=== PATIENT | female | born 1985 | race Hispanic/Latino ===

== ENCOUNTER 2019-08-28 17:38 | Emergency (ER) | payer SELFPAY ==
[2019-08-28] MEDS ORDERED: ONDANSETRON 4 MG/2 ML VIAL ONE (18:50)
[2019-08-28] MEDS ORDERED: MORPHINE 4 MG/ML SYR ONE (18:50)
[2019-08-28 18:52] LABS: Absolute Lymphocytes (CBC) 1.5 K/uL (0.7-4.9); Basophils % 0.2 % (0-1.3); Hematocrit 37.9 % (36.0-45.0); MPV 9.3 fL (7.6-11.3); RBC Red Blood Cell Count 4.34 M/uL (3.86-4.86)
[2019-08-28 19:06] LABS: ALT/SGPT 16 U/L (12-78); AST/SGOT 12 U/L (15-37); Albumin 4.1 g/dL (3.4-5.0); BUN Blood Urea Nitrogen 9 mg/dL (7-18); Bicarbonate 26 mmol/L (21-32); Bilirubin Direct 0.2 mg/dL (0-0.2); Glucose Level 95 mg/dL (74-106); Lipase 51 U/L (73-393); Potassium 3.5 mmol/L (3.5-5.1); Sodium Level 137 mmol/L (136-145)
[2019-08-28 19:09] LABS: Alkaline Phosphatase 72 U/L (45-117); Bilirubin Total 0.7 mg/dL (0.2-1.0); Protein, Total 8.2 g/dL (6.4-8.2)
[2019-08-28 19:27] LABS: Urine Blood 2+ (NEG); Urine Glucose NEGATIVE (NEG); Urine Protein 1+ (NEG); Urine Specific Gravity 1.025 (1.005-1.030); Urine pH 6.5 (5.0-7.0)
--- NOTE | 2019-08-28 23:15 | ER ---
Nurse's Notes [facility] Name: Melia Rivers Age: 33 yrs Sex: Female : 1985 Arrival Date: 08/28/2019 Time: 17:41 Bed 7 Private MD: Diagnosis: Abdominal and pelvic pain;Dysmenorrhea, unspecified;Unspecified ovarian cysts Presentation: 08/27 18:10 Chief complaint: Patient states: Started on Tuesday, diffuse abdominal pain radiating to ca1 the back. Reports N/V/Constipation. Reports abdomen feels distended and swollen. Denies urinary symptoms. Denies fever. Coronavirus screen: Proceed with normal triage. Patient denies a cough. Patient denies shortness of breath or difficulty breathing. Patient denies measured and/or subjective temperature greater than 100.4F prior to today's visit. Patient denies travel on a cruise ship or to a country the [facility] currently lists as an affected area. Patient denies contact with known and/or suspected case of COVID-19. Ebola Screen: Patient negative for fever greater than or equal to 101.5 degrees Fahrenheit, and additional compatible Ebola Virus Disease symptoms Patient denies exposure to infectious person. Patient denies travel to an Ebola-affected area in the 21 days before illness onset. No symptoms or risks identified at this time. Initial Sepsis Screen: Does the patient meet any 2 criteria? No. Patient's initial sepsis screen is negative. Does the patient have a suspected source of infection? No. Patient's initial sepsis screen is negative. Risk Assessment: Do you want to hurt yourself or someone else? Patient reports no desire to harm self or others. Onset of symptoms was August 28, 2019. 18:10 Method Of Arrival: Ambulatory ca1 18:10 Acuity: ELIECER 3 ca1 Triage Assessment: 18:10 General: Appears in no apparent distress. uncomfortable, Behavior is cooperative, bp appropriate for age, anxious. Pain: Complains of pain in abdomen. EENT: No deficits noted. Neuro: No deficits noted. Cardiovascular: No deficits noted. Respiratory: No deficits noted. GI: Abdomen is non-distended. : No signs and/or symptoms were reported regarding the genitourinary system. Derm: No deficits noted. Musculoskeletal: No deficits noted. 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 - Social history:: Smoking status: Patient reports the use of cigarette tobacco products, denies chronic smoking, but will smoke occasionally. Screenin:46 Abuse screen: Denies threats or abuse. Denies injuries from another. Nutritional bp screening: No deficits noted. Tuberculosis screening: No symptoms or risk factors identified. Fall Risk None identified. Assessment: 18:10 General: SEE TRIAGE NOTE. bp 19:11 General: Appears in no apparent distress. comfortable, Behavior is calm, cooperative, ao appropriate for age. Pain: Complains of pain in abdomen Pain currently is 6 out of 10 on a pain scale. Neuro: Level of Consciousness is awake, alert, obeys commands, Oriented to person, place, time, situation, Appropriate for age Moves all extremities. Full function Speech is normal. Cardiovascular: Capillary refill < 3 seconds Patient's skin is warm and dry. Respiratory: Airway is patent Respiratory effort is even, unlabored, Respiratory pattern is regular, symmetrical. GI: Bowel sounds present X 4 quads. Abd is soft and non tender X 4 quads. GI: Reports nausea, Pain is 6 out of 10 on a pain scale. : EENT: No signs and/or symptoms were reported regarding the EENT system. Derm: No signs and/or symptoms reported regarding the dermatologic system. Musculoskeletal: No signs and/or symptoms reported regarding the musculoskeletal system. 19:12 Reassessment: Received report from YOLY Marin. ao 21:14 Reassessment: Patient appears in no apparent distress at this time. Patient and/or ao family updated on plan of care and expected duration. Pain level reassessed. Vital Signs: 18:10 BP 95 / 62; Pulse 91; Resp 17 S; Temp 97.2(TE); Pulse Ox 100% on R/A; Weight 58.97 kg ca1 (R); Height 5 ft. (152.40 cm) (R); Pain 8/10; 20:00 BP 117 / 69; Pulse 74; Resp 14; Pulse Ox 100% on R/A; Pain 6/10; ao 21:14 BP 111 / 51; Pulse 77; Resp 16; Pulse Ox 100% ; ao 22:51 BP 104 / 58; Pulse 87; Resp 18; Pulse Ox 99% on R/A; ea 18:10 Body Mass Index 25.39 (58.97 kg, 152.40 cm) ca1 ED Course: 17:41 Patient arrived in ED. mr 18:12 Triage completed. ca1 18:13 Arm band placed on right wrist. ca1 18:19 Tomas Obando, YOLY is Primary Nurse. bp 18:38 Rashawn Lopez PA is PHCP. jr8 18:38 Earl Zheng MD is Attending Physician. jr8 18:40 Initial lab(s) drawn, by me, sent to lab. Inserted saline lock: 22 gauge in left kj1 antecubital area, using aseptic technique. Blood collected. 18:46 Patient has correct armband on for positive identification. Bed in low position. Call bp light in reach. Side rails up X2. 20:15 CT Abd/Pelvis - IV Contrast Only In Process Unspecified. EDMS 21:59 US Transvaginal Study (Probe) In Process Unspecified. EDMS 08/28 00:07 No provider procedures requiring assistance completed. Patient did not have IV access ea during this emergency room visit. intact, bleeding controlled, No redness/swelling at site. Pressure dressing applied. Administered Medications: 08/27 18:44 Drug: morphine 4 mg Route: IVP; Site: left forearm; bp 08/28 00:05 Follow up: Response: No adverse reaction; RASS: Alert and Calm (0) ea 08/27 18:44 Drug: Zofran (Ondansetron) 4 mg Route: IVP; Site: left forearm; bp 08/28 00:05 Follow up: Response: No adverse reaction ea 00:06 Drug: Acetaminophen 1000 mg Route: PO; ea 00:06 Follow up: Response: No adverse reaction; RASS: Alert and Calm (0) ea 00:07 Follow up: Response: RASS: Alert and Calm (0) ea Outcome: 08/27 23:14 Discharge ordered by . [email or web address] 08/28 00:07 Discharged to home ambulatory. ea Condition: stable Discharge instructions given to patient, Instructed on discharge instructions, follow up and referral plans. 00:08 Patient left the ED. ea Signatures: Dispatcher [employer] EDND Ana Faria mr John, RUBIN Morocho jr8 Marlo Al, RN RN Chikis Hunt RN RN Tomas Zhang, Jennifer Wynne RN RN RN Marina Mcneil kj1
--- NOTE | 2019-08-28 23:15 | EDPHYS ---
Physician Documentation [facility] Name: Melia Rivers Age: 33 yrs Sex: Female : 1985 Arrival Date: 08/28/2019 Time: 17:41 Bed 7 Private MD: ED Physician Earl Zheng HPI: 08/27 19:33 This 33 yrs old Female presents to ER via Ambulatory with complaints of jr8 Abdominal Pain. 19:33 The patient presents with abdominal pain that is diffuse. Onset: The symptoms/episode jr8 began/occurred acutely, 2 day(s) ago. The symptoms do not radiate. Associated signs and symptoms: none. The symptoms are described as stabbing. Modifying factors: The symptoms are alleviated by nothing, the symptoms are aggravated by movement. Severity of pain: At its worst the pain was moderate in the emergency department the pain is unchanged. The patient has not experienced similar symptoms in the past. The patient has not recently seen a physician. 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 - Social history:: Smoking status: Patient reports the use of cigarette tobacco products, denies chronic smoking, but will smoke occasionally. ROS: 19:34 Eyes: Negative for injury, pain, redness, and discharge, ENT: Negative for injury, jr8 pain, and discharge, Neck: Negative for injury, pain, and swelling, Cardiovascular: Negative for chest pain, palpitations, and edema, Respiratory: Negative for shortness of breath, cough, wheezing, and pleuritic chest pain, Back: Negative for injury and pain, MS/Extremity: Negative for injury and deformity, Skin: Negative for injury, rash, and discoloration, Neuro: Negative for headache, weakness, numbness, tingling, and seizure. 19:34 Abdomen/GI: Positive for abdominal pain, Negative for nausea, vomiting, and diarrhea, abdominal cramps, abdominal distension. Exam: 19:34 Eyes: Pupils equal round and reactive to light, extra-ocular motions intact. Lids and jr8 lashes normal. Conjunctiva and sclera are non-icteric and not injected. Cornea within normal limits. Periorbital areas with no swelling, redness, or edema. ENT: Nares patent. No nasal discharge, no septal abnormalities noted. Tympanic membranes are normal and external auditory canals are clear. Oropharynx with no redness, swelling, or masses, exudates, or evidence of obstruction, uvula midline. Mucous membranes moist. Neck: Trachea midline, no thyromegaly or masses palpated, and no cervical lymphadenopathy. Supple, full range of motion without nuchal rigidity, or vertebral point tenderness. No Meningismus. Cardiovascular: Regular rate and rhythm with a normal S1 and S2. No gallops, murmurs, or rubs. Normal PMI, no JVD. No pulse deficits. Respiratory: Lungs have equal breath sounds bilaterally, clear to auscultation and percussion. No rales, rhonchi or wheezes noted. No increased work of breathing, no retractions or nasal flaring. Back: No spinal tenderness. No costovertebral tenderness. Full range of motion. Skin: Warm, dry with normal turgor. Normal color with no rashes, no lesions, and no evidence of cellulitis. MS/ Extremity: Pulses equal, no cyanosis. Neurovascular intact. Full, normal range of motion. Neuro: Awake and alert, GCS 15, oriented to person, place, time, and situation. Cranial nerves II-XII grossly intact. Motor strength 5/5 in all extremities. Sensory grossly intact. Cerebellar exam normal. Normal gait. 19:34 Abdomen/GI: Inspection: abdomen appears normal, Bowel sounds: active, all quadrants, Palpation: soft, in all quadrants, mild abdominal tenderness, in the suprapubic area and right lower quadrant, moderate abdominal tenderness, in the left lower quadrant, mass, is not appreciated, rebound tenderness, is not appreciated, voluntary guarding, is not appreciated, involuntary guarding, is not appreciated, no appreciated organomegaly, Indicators: McBurney's point is not tender, Hayward's sign is negative, Rovsing's sign is negative, Liver: tenderness, is not appreciated. Vital Signs: 18:10 BP 95 / 62; Pulse 91; Resp 17 S; Temp 97.2(TE); Pulse Ox 100% on R/A; Weight 58.97 kg ca1 (R); Height 5 ft. (152.40 cm) (R); Pain 8/10; 20:00 BP 117 / 69; Pulse 74; Resp 14; Pulse Ox 100% on R/A; Pain 6/10; ao 21:14 BP 111 / 51; Pulse 77; Resp 16; Pulse Ox 100% ; ao 22:51 BP 104 / 58; Pulse 87; Resp 18; Pulse Ox 99% on R/A; ea 18:10 Body Mass Index 25.39 (58.97 kg, 152.40 cm) ca1 MDM: 18:38 Patient medically screened. jr8 23:11 Data reviewed: vital signs, nurses notes, lab test result(s), radiologic studies, CT jr8 scan, ultrasound, and as a result, I will discharge patient. Data interpreted: Pulse oximetry: on room air is 99 %. Interpretation: normal. Counseling: I had a detailed discussion with the patient and/or guardian regarding: the historical points, exam findings, and any diagnostic results supporting the discharge/admit diagnosis, lab results, radiology results, the need for outpatient follow up, an OB/Gyne specialist, to return to the emergency department if symptoms worsen or persist or if there are any questions or concerns that arise at home. ED course: After further discussing results with patient. Patient did say she has had some painful intercourse and abnormal bleeding. No discharge at this time. Explained to her that it may be some dysmenorrhea. Otherwise nothing else surgically emergent at this time and can f/u with OB. Patient good with this . 08/27 18:28 Order name: Urine Dipstick--Ancillary (enter results); Complete Time: 19:28 em1 08/27 18:28 Order name: Urine --Ancillary (enter results); Complete Time: 19:28 em1 08/27 18:38 Order name: Basic Metabolic Panel; Complete Time: 19:24 8 08/27 18:38 Order name: CBC with Diff; Complete Time: 19:24 08/27 18:38 Order name: Hepatic Function; Complete Time: 19:24 08/27 18:38 Order name: Lipase; Complete Time: 19:24 08/27 18:38 Order name: IV Saline Lock; Complete Time: 18:39 08/27 18:38 Order name: Labs collected and sent; Complete Time: 18:39 8 08/27 19:27 Order name: CT Abd/Pelvis - IV Contrast Only 8 08/27 20:48 Order name: Transvaginal Study (Probe) jr8 Administered Medications: 18:44 Drug: morphine 4 mg Route: IVP; Site: left forearm; bp 08/28 00:05 Follow up: Response: No adverse reaction; RASS: Alert and Calm (0) ea 08/27 18:44 Drug: Zofran (Ondansetron) 4 mg Route: IVP; Site: left forearm; bp 08/28 00:05 Follow up: Response: No adverse reaction ea 00:06 Drug: Acetaminophen 1000 mg Route: PO; ea 00:06 Follow up: Response: No adverse reaction; RASS: Alert and Calm (0) ea 00:07 Follow up: Response: RASS: Alert and Calm (0) ea Disposition: 08/28/19 23:14 Discharged to Home. Impression: Abdominal and pelvic pain, Dysmenorrhea, unspecified, Unspecified ovarian cysts. - Condition is Stable. - Discharge Instructions: Abdominal Pain, Adult, Ovarian Cyst, Dysmenorrhea, [id number]. - Medication Reconciliation Form, Thank You Letter, Antibiotic Education, Prescription Opioid Use, Work release form form. - Follow up: Private Physician; When: 2 - 3 days; Reason: If symptoms return, Recheck today's complaints, Continuance of care, Re-evaluation by your physician. - Problem is new. - Symptoms have improved. Addendum: 08/30/2019 21:25 Co-signature as Attending Physician, Earl Zheng MD Did not see or evaluate patient. p s1 I was available in the ED for consultation. Signature for administrative purposes. . Signatures: Dispatcher [employer] EDMS Rashawn Lopez PA PA jr8 Chikis Kent RN RN ea Peltier, Brian, RN RN bp Singer, Phillip, MD MD ps1 Jennifer Magdaleno RN RN ca1 Corrections: (The following items were deleted from the chart) 08/27 19:34 19:33 Onset: The symptoms/episode began/occurred acutely, today, jr8 jr8 08/28 00:08 08/27 23:14 08/28/2019 23:14 Discharged to Home. Impression: Abdominal and pelvic pain; ea Dysmenorrhea, unspecified; Unspecified ovarian cysts. Condition is Stable. Forms are Medication Reconciliation Form, Thank You Letter, Antibiotic Education, Prescription Opioid Use. Follow up: Private Physician; When: 2 - 3 days; Reason: If symptoms return, Recheck today's complaints, Continuance of care, Re-evaluation by your physician. Problem is new. Symptoms have improved. jr8
[2019-08-29] MEDS ORDERED: ACETAMINOPHEN 500 MG TAB ONE (00:04)
[2019-08-29 00:16] VITALS: TEMP 97.2
[2019-08-29 00:20] VITALS: BP 104/58; O2SAT 99
--- NOTE | 2019-08-29 08:47 | RAD REPORT ---
EXAM DESCRIPTION: US - Transvaginal Study Probe - 08/28/2019 9:59 pm CLINICAL HISTORY: Abnormal CT...TOA vs rupture cyst COMPARISON: None. TECHNIQUE: US PELVIS TRANSVAGINAL 08/28/2019 8:48 PM CDT FINDINGS: Uterus measures 8.0 cm. Endometrial stripe measures 9 mm. Both ovaries are unremarkable wi th patent flow. IMPRESSION: Unremarkable study. Electronically signed by: Zay Forbes MD 08/28/2019 10:21 PM CDT Due to temporary technical issues with the PACS/Fluency reporting system, reports are being signed by the in house radiologist without review as a courtesy to ensure prompt reporting. The interpreting r adiologist is fully responsible for the content of the report.
--- NOTE | 2019-08-30 16:11 | RAD REPORT ---
EXAM DESCRIPTION: CT - Abdomen Pelvis W Contrast - 08/29/2019 5:23 am CLINICAL HISTORY: ABD PAIN COMPARISON: None. TECHNIQUE: CT ABDOMEN PELVIS WITH IV CONTRAST on 08/28/2019 7:27 PM CDT This exam was performed according to our departmental dose-optimization program, which includes autom ated exposure control, adjustment of the mA and/or kV according to patient size and/or use of iterati ve reconstruction technique. FINDINGS: Lower lungs are clear. Abdomen: Liver is mildly fatty in attenuation. There is no biliary dilatation. Gallbladder is normal in appearance. The pancreas and spleen are normal in appearance. The adrenal glands and kidneys are u nremarkable. Abdominal aorta is normal in course and caliber without aneurysm. There is no free air. There is no r etroperitoneal adenopathy. Pelvis: There is no bowel obstruction. Urinary bladder is unremarkable. There is trace free pelvic fl uid. Uterus is normal in size. There is a probable left ovarian cyst measuring 2.9 cm. Right ovarian cyst measures 2.3 cm. Appendix is poorly seen but there is no pericecal inflammation. Skeleton: There are no acute osseous findings. No suspicious bony lesions. IMPRESSION: No definite acute inflammatory process. Electronically signed by: Zay Forbes MD 08/28/2019 11:25 PM CDT Due to temporary technical issues with the PACS/Fluency reporting system, reports are being signed by the in house radiologist without review as a courtesy to ensure prompt reporting. The interpreting r adiologist is fully responsible for the content of the report.
== END 2019-08-29 00:08 | disposition home or self-care (01) ==
LOC: ER 17:38
DX: N94.6 Dysmenorrhea, unspecified (principal); N83.209 Unspecified ovarian cyst, unspecified side; F17.210 Nicotine dependence, cigarettes, uncomplicated; Z88.0 Allergy status to penicillin; Z91.030 Bee allergy status
CPT/HCPCS: 36415; 74177; 76830; 80048; 80076; 81003; 81025; 83690; 85025; 96374; 96375; 99284; J2405; Q9967